=== PATIENT | female | born 1990 | race Caucasian/White ===

== ENCOUNTER → 2023-09-26 09:09 | Outpatient (REF) | payer OTHER, SELFPAY ==
[2023-09-26 10:08] LABS: % Basophils 0.6 % (0-2); % Eosinophils 1.9 % (0-6); % Immature Granulocytes 0.4 % (0-0.5); % Lymphocytes 30.9 % (20.5-51.1); % Monocytes 8.2 % (1.7-9.3); Absolute Basophils 0.1 10^3/uL (0-0.2); Absolute Eosinophils 0.2 10^3/uL (0-0.7); Absolute Lymphocytes 2.4 10^3/uL (1.2-3.4); Absolute Monocytes 0.6 10^3/uL (0.1-0.6); Absolute Neutrophils 4.5 10^3/uL (1.4-6.5); Hematocrit 41.6 % (37.0-47.0); Hemoglobin 14.4 g/dL (12.0-16.0); Mean Corp Hgb Conc. 34.6 g/dL (33.0-37.0); Mean Corpuscular Hgb 31.2 pg (27.0-31.0); Mean Platelet Volume 10.1 fL (7.4-10.4); Nucleated Red Blood Cells % 0 %; Platelet Count 287 10^3/uL (130-400); Red Blood Cell Count 4.62 10^6/uL (4.20-5.40); Red Cell Dist. Width 12.8 % (11.5-14.5); White Blood Cell Count 7.7 10^3/uL (4.8-10.8)
[2023-09-26 10:38] LABS: ALT (SGPT) 14 U/L (0-35); AST (SGOT) 21 U/L (14-36); Albumin 4.2 g/dl (3.5-5.0); Alkaline Phosphatase 53 U/L (38-126); Blood Urea Nitrogen 10 mg/dl (7-17); Calcium 9.3 mg/dl (8.4-10.2); Carbon Dioxide 23 mmol/L (22-30); Chloride 106 mmol/L (98-107); Glucose 95 mg/dl (70-99); HDL Cholesterol 46 mg/dl; LDL Cholesterol, Calculated 113 mg/dl; Potassium 4.2 mmol/L (3.5-5.1); Sodium 137 mmol/L (135-145); Total Bilirubin 0.5 mg/dl (0.2-1.3); Total Cholesterol 179 mg/dl (50-199); Total Protein 7.1 g/dl (6.3-8.2); Triglyceride 101 mg/dl (10-149); Very Low Density Lipoprotein 20 mg/dl (0-30); eGFR > 60.00
[2023-09-26 11:06] LABS: TSH 1.02 uIU/ml (0.47-4.68)
[2023-09-26 13:16] LABS: Glycohemoglobin (HgbA1c) 5.4 % (4.0-5.6)
== END ==
LOC: REG 09:09
PROVIDERS: ATTENDING PHYSICIAN Family Medicine
DX: Z87.898 Personal history of other specified conditions (principal); Z01.89 Encounter for other specified special examinations; I34.1 Nonrheumatic mitral (valve) prolapse; Z80.42 Family history of malignant neoplasm of prostate; Z82.49 Family history of ischemic heart disease and other diseases of the circulatory system
CPT/HCPCS: 36415; 80053; 80061; 82306; 83036; 84443; 85025

== ENCOUNTER 2023-09-30 12:08 | Emergency (ER) | payer OTHER, SELFPAY ==
[2023-09-30 12:20] VITALS: BP 147/91
[2023-09-30] MEDS: NSS 1000 IV ×2 (13:23→14:31)
[2023-09-30 13:35] LABS: % Basophils 0.4 % (0-2); % Eosinophils 0.7 % (0-6); % Immature Granulocytes 0.4 % (0-0.5); % Lymphocytes 13.5 % (20.5-51.1); % Monocytes 7.1 % (1.7-9.3); % Neutrophils 77.9 % (42.2-75.2); Absolute Eosinophils 0.1 10^3/uL (0-0.7); Absolute Lymphocytes 1.4 10^3/uL (1.2-3.4); Absolute Monocytes 0.8 10^3/uL (0.1-0.6); Absolute Neutrophils 8.2 10^3/uL (1.4-6.5); Hematocrit 39.7 % (37.0-47.0); Mean Corp Hgb Conc. 35.3 g/dL (33.0-37.0); Mean Corpuscular Hgb 31.3 pg (27.0-31.0); Mean Corpuscular Volume 88.6 fL (81.0-99.0); Nucleated Red Blood Cells % 0 %; Platelet Count 307 10^3/uL (130-400); Red Blood Cell Count 4.48 10^6/uL (4.20-5.40); Red Cell Dist. Width 12.9 % (11.5-14.5); White Blood Cell Count 10.5 10^3/uL (4.8-10.8)
[2023-09-30 13:44] LABS: ALT (SGPT) 14 U/L (0-35); AST (SGOT) 21 U/L (14-36); Albumin 4.3 g/dl (3.5-5.0); Alkaline Phosphatase 64 U/L (38-126); Blood Urea Nitrogen 9 mg/dl (7-17); Carbon Dioxide 23 mmol/L (22-30); Chloride 108 mmol/L (98-107); Glucose 104 mg/dl (70-99); Potassium 4.1 mmol/L (3.5-5.1); Sodium 136 mmol/L (135-145); Total Bilirubin 0.7 mg/dl (0.2-1.3); Total Protein 7.4 g/dl (6.3-8.2); eGFR > 60.00
[2023-09-30 13:59] LABS: Beta HCG Quantitative 501.32 mIU/ml
--- NOTE | 2023-09-30 14:03 | ED.GENMED ---
History of Present Illness
General
Chief Complaint: Vaginal Bleeding
Source: patient
Exam Limitations: none
Time Seen by Provider: 09/30/23 12:55
Nursing documentation reviewed up to this point in time: agreed with
Travel History
Have you had any contact with someone who has COVID-19?: No
Do you have any symptoms of coronavirus? Fever > 100 degrees, chills, cough, shortness of breath, sore throat, loss of taste or smell, muscle aches, or headache?: No
History of Present Illness
History of Present Illness:
33-year-old female presents with sudden onset of severe lower mid to left abdominal pain at 930 this morning.
With history of an ovarian torsion on the right resolved by a cyst removal, ovary remains intact, , presents stating she has vaginal bleeding which started 9 days ago which was when her period was 2 but this 1 was 'different.' She states
she has been bleeding for the past 9 days constant but not as heavy as her usual period. She states typically her bleeding will get heavy on day 2-4 and then slowly subside.. Never got heavy but is lasting much longer. She has cramping-like pains
waxing and waning during the past 9 days. She did a test at home today which was positive.
She states abdominal cramping is minimal at this time
She denies fever or chills
Past History
Past History
ED Past Medical History: None
ED Past Surgical History: and Gynecological (R ovarian cyst removed)
Review of Systems
Review of Systems
Allergies reviewed?: Yes
All Other Systems: ROS reviewed and negative except as documented in HPI and ROS
Constitutional: Denies fever
Respiratory: Denies trouble breathing
Cardiac: Denies chest pain
ABD/GI: Reports abdominal pain; Denies nausea, vomiting or diarrhea
: Reports difficulty voiding, urgency and bleeding; Denies dysuria or flank pain
Musculoskeletal: Reports no symptoms
Skin: Reports no symptoms
Phy Exam
Physical Exam
Physical Exam:
GENERAL: No acute distress. A&Ox3.
CONSTITUTIONAL: Afebrile.
EYES: Clear, conjunctivae normal
ENMT: moist mucus membranes, Pharynx nl
RESPIRATORY: Regular respirations, nonlabored, lungs clear.
CARDIOVASCULAR: Regular rate and rhythm, no murmurs, no rubs.
GI: Soft, mildly tender left lower quadrant, no guarding, normal BS
MUSCULOSKELETAL: Moves with ease. Well perfused.
SKIN: Warm, dry, pink
PSYCH: Normal mood and affect. Well kept, interactive and appropriate
NEUROLOGIC: Awake, alert and oriented. No focal neurological deficits
Course
Orders/Labs/Results
Orders:
Orders
09/30/23 12:56
0.9% Sodium Chloride 1000 ml [Nss] 1,000 ml IV BOLUS
09/30/23 12:57
US W Transvaginal Urgent
Reason For Exam: Positive test at home today, L abd pain
09/30/23 13:21
Type+Screen Urgent
Beta HCG Quantitative Urgent
Is this a screen?: No
Complete Blood Count/With Diff Urgent
Comprehensive Metabolic Panel Urgent
09/30/23 14:16
0.9% Sodium Chloride 1000 ml [Nss] 1,000 ml IV BOLUS
09/30/23 16:30
Methotrexate Sodium/Pf [Methotrexate] 104 mg Intramuscular Injection 0 ml IM ONCE
09/30/23 17:00
Methotrexate Sodium/Pf [Methotrexate] 52 mg Intramuscular Injection 0 ml IM BID@1700,1701
Abnormal Lab Results
09/30/23
13:21
MCH 31.3 H pg
(27.0-31.0)
Absolute Neuts (auto) 8.2 H 10^3/uL
(1.4-6.5)
Absolute Monos (auto) 0.8 H 10^3/uL
(0.1-0.6)
Neutrophils % 77.9 H %
(42.2-75.2)
Lymphocytes % 13.5 L %
(20.5-51.1)
Chloride 108 H mmol/L
(98-107)
Glucose 104 H mg/dl
(70-99)
09/30/23 13:21
09/30/23 13:21
Vital Signs
Initial and Last Documented VS:
Initial Vital Signs
Temp Pulse Resp BP Pulse Ox
98.3 F 90 18 147/91 98
09/30/23 12:20 09/30/23 12:20 09/30/23 12:20 09/30/23 12:20 09/30/23 12:20
Last Documented Vital Signs
Temp Pulse Resp BP Pulse Ox
98.3 F 90 18 147/91 98
09/30/23 12:20 09/30/23 12:20 09/30/23 12:20 09/30/23 12:20 09/30/23 12:20
MDM/Problems Addressed
Differential Diagnosis Includes:
Bleeding in early , miscarriage, ectopic
MDM/Problems Addressed:
33-year-old female presents with sudden onset of severe lower mid to left abdominal pain at 930 this morning.
With history of an ovarian torsion on the right resolved by a cyst removal, ovary remains intact, , presents stating she has vaginal bleeding which started 9 days ago which was when her period was 2 but this 1 was 'different.' She states
she has been bleeding for the past 9 days constant but not as heavy as her usual period. She states typically her bleeding will get heavy on day 2-4 and then slowly subside.. Never got heavy but is lasting much longer. She has cramping-like pains
waxing and waning during the past 9 days. She did a test at home today which was positive.
She states abdominal cramping is minimal at this time
She denies fever or chills
09/30/2023 1407 PM
CBC normal
CMP normal
hCG quant 501.32
After 800 IV fluids infused, patient still unable to urinate although she says she had the urge to urinate all day but has not been able to.
Bladder scan reveals no more than 80 mL of urine in her bladder
Second liter of IV fluids hung
09/30/2023 1541 PM
Received a call from radiologist stating he is concerned about left ectopic . Report reviewed: IMPRESSION:
Findings are suspicious for ectopic with� 3.0 cm soft tissue mass with an adjacent 1.5 cm cyst in the cul-de-sac
Clinical correlation and correlation with patient's serial hCGs is recommended
Consulted [employer] Dr. Bentley
Pt remains stable, comfortable.
09/30/[address] Bentley in
Worked with Pharmacist Lisa on Methotrexate dose
BSA 2.09 m2
50 x 2.09= 104.5 mg IM to be administered.
Out pt lab slips given to pt to return on the following dates for repeat hCG quantitative:
10/02
10/05
10/12
Dr. Bentley states she will also look for the results.
*Critical Care Note
Total Time (30-74mins, 75-104mins- exclusive of procedures): Not Applicable
ED Attending Note
-
Portions of this chart may have been created with voice recognition software.� Occasional wrong word or��sound alike� substitutions may have occurred due to the inherent limitations of voice recognition software.
Discharge Plan
Departure
Patient Disposition: Home (Routine Discharge)
Date of Disposition: 09/30/23
Time of Disposition: 16:53
Patient with high blood pressure during this ER visit?: No
Condition: Good
Discharge Problem:
Ectopic
Instructions: Ectopic (DC), Methotrexate
Prescriptions:
No Action
PNV cmb#95-ferrous fumarate-FA [] 1 EACH tablet
1 ea PO DAILY
acetaminophen 325 MG tablet
650 mg PO Q4HPRN PRN (Reason: mild pain) 0RF
ibuprofen 600 MG tablet
600 mg PO Q4HPRN PRN (Reason: cramps) 0RF
Referrals:
Jailyn Galindo, [Family Provider] -
Gisel Bentley MD [Active] - Keep scheduled appt
Activity Restrictions/Additional Instructions:
As we discussed, return on 10/02 and 10/05 for recheck of hCG hormone.
Bring your out pt lab slip with you.
Return here immediately for heavy vaginal bleeding with clots, feeling weak or dizzy, lightheaded, worsening abdominal pain or feeling sicker in any way.
Interventions
Interventions:
*Risk Screen - Suicide Last Done: 09/30/23 12:20
*General Assessment Last Done: 09/30/23 12:20
*Neglect/Abuse Screening Last Done: 09/30/23 12:20
*ED COVID-19 Vaccine History Last Done: 09/30/23 12:20
ED-Female Genitourinary Assessment Last Done: 09/30/23 13:06
[2023-09-30] MEDS: METHOTREXATE 2.08000000000000007 MG IM ×2 (17:41→17:42)
[2023-09-30 17:53] VITALS: BP 134/77
== END 2023-09-30 17:57 | disposition home or self-care (01) ==
LOC: EMR 12:08
PROVIDERS: Registered Nurse; EMERGENCY PHYSICIAN Student in an Organized Health Care Education/Training Program; FAMILY PHYSICIAN Family Medicine; OTHER PHYSICIAN Obstetrics & Gynecology
DX: O00.90 Unspecified ectopic pregnancy without intrauterine pregnancy (principal); O26.899 Other specified pregnancy related conditions, unspecified trimester; Z3A.00 Weeks of gestation of pregnancy not specified
CPT/HCPCS: 99284; 96360; 96361; 51798; 96372 ×2; 76801; 76817; 80053; 84702; 85025; 86850; 86900; 86901; J9260

== ENCOUNTER → 2023-10-03 14:36 | Outpatient (REF) | payer OTHER, SELFPAY ==
[2023-10-03 16:09] LABS: Beta HCG Quantitative 95.94 mIU/ml
== END ==
LOC: REG 14:36
PROVIDERS: ATTENDING PHYSICIAN Physician Assistant Medical; FAMILY PHYSICIAN Family Medicine; REFERRING PHYSICIAN Obstetrics & Gynecology
DX: N93.9 Abnormal uterine and vaginal bleeding, unspecified (principal); O00.90 Unspecified ectopic pregnancy without intrauterine pregnancy
CPT/HCPCS: 36415; 84702

== ENCOUNTER → 2023-10-06 11:14 | Outpatient (REF) | payer OTHER, SELFPAY ==
[2023-10-06 12:10] LABS: Beta HCG Quantitative 19.97 mIU/ml
== END ==
LOC: REG 11:14
PROVIDERS: ATTENDING PHYSICIAN Physician Assistant Medical; FAMILY PHYSICIAN Obstetrics & Gynecology
DX: O26.91 Pregnancy related conditions, unspecified, first trimester (principal)
CPT/HCPCS: 84702

== ENCOUNTER → 2023-10-14 06:35 | Outpatient (REF) | payer OTHER, SELFPAY ==
[2023-10-14 08:23] LABS: Beta HCG Quantitative < 2.39 mIU/ml
== END ==
LOC: REG 06:35
PROVIDERS: ATTENDING PHYSICIAN Obstetrics & Gynecology; FAMILY PHYSICIAN Family Medicine
DX: O00.90 Unspecified ectopic pregnancy without intrauterine pregnancy (principal)
CPT/HCPCS: 36415; 84702

== ENCOUNTER → 2025-03-31 13:08 | Outpatient (REF) | payer BC, SELFPAY | LOC: HWRAD 13:08 | PROVIDERS: ATTENDING PHYSICIAN Obstetrics & Gynecology; FAMILY PHYSICIAN Family Medicine | DX: N93.9 Abnormal uterine and vaginal bleeding, unspecified (principal); E07.9 Disorder of thyroid, unspecified | CPT/HCPCS: 76536 ==

== ENCOUNTER 2025-05-31 10:18 | Emergency (ER) | payer BC, SELFPAY ==
[2025-05-31 10:44] VITALS: BP 130/100
[2025-05-31 11:24] LABS: ALT (SGPT) 32 U/L (0-35); AST (SGOT) 28 U/L (14-36); Albumin 4.4 g/dl (3.5-5.0); Alkaline Phosphatase 59 U/L (38-126); Blood Urea Nitrogen 7 mg/dl (7-17); Calcium 8.9 mg/dl (8.4-10.2); Carbon Dioxide 24 mmol/L (22-30); Chloride 106 mmol/L (98-107); Glucose 96 mg/dl (70-99); Potassium 4.3 mmol/L (3.5-5.1); Sodium 134 mmol/L (135-145); Total Protein 7.5 g/dl (6.3-8.2); eGFR > 60.00
--- NOTE | 2025-05-31 11:25 | ED.GENMED ---
History of Present Illness
General
Chief Complaint: Problems
Time Seen by Provider: 05/31/25 11:04
Nursing documentation reviewed up to this point in time: agreed with
History of Present Illness
History of Present Illness:
34-year-old female referred to the ER from OB office due to poorly progressing beta-hCG and prior history of ectopic . Patient denies any vaginal bleeding or pelvic cramping. She experienced an ectopic last spring and has had several
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 She has been seeing a naturopathic physician in addition to [facility]. She has been taking progesterone supplementation along with multiple vitamins. She denies ever receiving RhoGAM
injection. Patient feels well, no fevers or chills, no other concerns today.
Past History
Past History
ED Past Medical History: None
ED Past Surgical History: and Gynecological (R ovarian cyst removed)
Review of Systems
Review of Systems
Allergies reviewed?: Yes
Phy Exam
Physical Exam
Physical Exam:
Patient is awake, alert, appears in no acute distress, head is NCAT, PERRL, EOMI mucous membranes moist, conjunctiva pink, no JVD, abdomen is soft and nontender on palpation, no guarding rebound or rigidity, extremities without edema, GCS is 15
Course
Orders/Labs/Results
Orders:
Orders
05/31/25 10:50
US 1st Trimester Urgent
Comment: hx ectopic
Reason For Exam: 5wk 3 days preg. hcg not doubling
05/31/25 10:55
Complete Blood Count/With Diff Urgent
Comprehensive Metabolic Panel Urgent
HCG, Beta Quantitative [Beta HCG Quantitative] Urgent
Is this a screen?: No
Abnormal Lab Results
05/31/25
10:55
MPV 10.6 H fL
(7.4-10.4)
Absolute Monos (auto) 0.7 H 10^3/uL
(0.1-0.6)
Sodium 134 L mmol/L
(135-145)
05/31/25 10:55
05/31/25 10:55
hCG slightly increased compared to 1356 on 1114
Vital Signs
Initial and Last Documented VS:
Initial Vital Signs
Temp Pulse Resp BP Pulse Ox
98.1 F 83 16 130/100 98
05/31/25 10:44 05/31/25 10:44 05/31/25 10:44 05/31/25 10:44 05/31/25 10:44
Last Documented Vital Signs
Temp Pulse Resp BP Pulse Ox
98.1 F 83 16 130/100 98
05/31/25 10:44 05/31/25 10:44 05/31/25 10:44 05/31/25 10:44 05/31/25 11:25
Information
Weeks gestation: Weeks: (5)
Location: Location: ([facility])
MDM/Problems Addressed
Differential Diagnosis Includes:
Differential diagnosis to consider but not limited to threatened miscarriage, inevitable miscarriage, ectopic along with other etiologies considered
*Radiology
Radiology exam reviewed: radiology read reviewed (early [facility])
*Pulse Oximetry
SaO2: 98
Oxygen Mode of Delivery: Room air
Patient hypoxic: no
*Critical Care Note
Total Time (30-74mins, 75-104mins- exclusive of procedures): Not Applicable
Update Note
Update Note:
Patient to ultrasound. Awaiting results.
1250: I reviewed with patient and significant other present at bedside ultrasound results-growth is in the endometrial canal parents. I reviewed all of today's ER results with on-call [employer] SUPERVISOR, Dr. Willett. She would recommend patient keep
appointment to be seen in the office next week. I reviewed dispo plan with patient and present at bedside, they agree with plan and have no questions at the current time
ED Attending Note
-
Portions of this chart may have been created with voice recognition software.� Occasional wrong word or��sound alike� substitutions may have occurred due to the inherent limitations of voice recognition software.
Discharge Plan
Departure
Patient Disposition: Home (Routine Discharge)
Date of Disposition: 05/31/25
Time of Disposition: 13:18
Patient with high blood pressure during this ER visit?: No
Discharge Problem:
Instructions: - The Second Month
Prescriptions:
No Action
PNV no.95-ferrous fumarate-FA [] 1 EACH tablet
1 ea PO DAILY
acetaminophen 325 MG tablet
650 mg PO Q4HPRN PRN (Reason: mild pain) 0RF
ibuprofen 600 MG tablet
600 mg PO Q4HPRN PRN (Reason: cramps) 0RF
Referrals:
Omid Cerrato MD [Active, Gynecology] - Keep scheduled appt
Discharge Problem:
Jailyn Galindo DO [Family Provider, Family Practice]
Activity Restrictions/Additional Instructions:
Continue your current medications. Encourage fluids. Please follow-up with OB office next week as scheduled. Return to the ER for any concerns
Interventions
Interventions:
*Risk Screen - Suicide Last Done: 05/31/25 10:44
*General Assessment Last Done: 05/31/25 10:44
*Neglect/Abuse Screening Last Done: 05/31/25 10:44
Discharge Date and Time
Print Language: CZECH
[2025-05-31 11:31] LABS: Hematocrit 44.9 % (37.0-47.0); Hemoglobin 15.2 g/dL (12.0-16.0); Mean Corp Hgb Conc. 33.9 g/dL (33.0-37.0); Mean Corpuscular Volume 90.7 fL (81.0-99.0); Nucleated Red Blood Cells % 0 %; Platelet Count 248 10^3/uL (130-400); Red Cell Dist. Width 13.2 % (11.5-14.5)
== END 2025-05-31 13:36 | disposition home or self-care (01) ==
LOC: EMR 10:18
PROVIDERS: Emergency Medicine; EMERGENCY PHYSICIAN Emergency Medicine; FAMILY PHYSICIAN Family Medicine
DX: O99.891 Other specified diseases and conditions complicating pregnancy (principal); Z3A.00 Weeks of gestation of pregnancy not specified; Z87.59 Personal history of other complications of pregnancy, childbirth and the puerperium
CPT/HCPCS: 99284; 76801; 80053; 84702; 85025

== ENCOUNTER → 2025-06-21 13:22 | Outpatient (REF) | payer BC, SELFPAY | LOC: PNTC 13:22 | PROVIDERS: ATTENDING PHYSICIAN Obstetrics & Gynecology | DX: O36.80X0 Pregnancy with inconclusive fetal viability, not applicable or unspecified (principal) | CPT/HCPCS: 76815; 76817 ==